=== PATIENT | male | born 1960 | race Caucasian/White ===

== ENCOUNTER 2022-04-15 08:24 | Outpatient (CLI) | payer OTHER, SELFPAY ==
[2022-04-15 12:45] LABS: Cholesterol* 260 mg/dL (90-199); Glucose* 89 mg/dL (60-115); Triglycerides* 107 mg/dL (40-149)
[2022-04-15 12:46] LABS: HDL Cholesterol* 59 mg/dL (>=40); LDL Cholesterol Calculated 180 mg/dL (<100)
== END 2022-04-15 08:25 | disposition home or self-care (01) ==
PROVIDERS: PCP Internal Medicine; Visit Provider Internal Medicine
DX: Z13.1 Encounter for screening for diabetes mellitus (principal); Z13.6 Encounter for screening for cardiovascular disorders
CPT/HCPCS: 80061; 82947

== ENCOUNTER 2023-09-06 13:11 | Outpatient (CLI) | payer OTHER, SELFPAY ==
--- OUTSIDE RECORDS SUMMARY | 2023-09-06 13:13 | XMS_ITS | Clinical Summary ---
Author Name Unknown Organization [facility] Address [address] [place] [address] Care Team Providers Care Bilingual Inside Sales Representative Name Role Phone Liza Sharpe APRN, TUB OPERATOR Primary Care Provider Source Comments You are receiving this document as you are listed as the primary care provider,follow-up provider, or the patient has been referred to you for consultation.This is in compliance with the Medicare and[facility] E[facility] Incentive Program,which states Providers who transition their patient to another setting of careor provider of care or refers their patient to another provider of care shouldprovide summary care record for each transition of care or referral. [facility] Allergies Active Allergy Reactions Criticality Noted Date Comments Sulfamethoxazole-Tri methoprim Other, see comments,Fever High 04/15/2015 PN: Elevated liver enzymes Medications Medication Sig Dispensed Refills Start Date End Date Status tamsulosin (FLOMAX) 0.4 MG CAPS capsule Take 1 Capsule by mouth daily. 90 Capsule 3 07/25/2018 Active aspirin 81 MG chewable tablet Chew and swallow 81 mg by mouth daily. Active Tadalafil (CIALIS) 5 MG tabletIndications: Urinary retention Take 1 Tablet by mouth daily. 30 Tablet 6 03/25/2020 Active Additional Information Patient not taking.Reported on 08/19/2020 Active Problems Problem Noted Date Diagnosed Date Benign prostatic hyperplasia 05/29/2020 Overview: Added automatically from request for surgery [id number] Immunizations Name Administration Dates Next Due Influenza IIV4 (Quadrivalent) 0.5mL (26632) 03/16 Moderna Monovalent 12+ 09/24/2020,08/27/2020 Family History Medical History Relation Name Comments Cancer Maternal Grandfather bladder cancer Diabetes Maternal Grandmother Relation Name Status Comments Father Alive Mother Alive Brother Alive Maternal Grandfather Maternal Grandmother Social History Tobacco Use Types Packs/Day Years Used Date Smoking Tobacco: Former Smokeless Tobacco: Never Alcohol Use Standard Drinks/Week Comments Yes 0 (1 standard drink = 0.6 oz pur e alcohol) Sex and Gender Information Value Date Recorded Sex Assigned at Not on file Gender Identity Not on file Sexual Orientation Not on file Last Filed Vital Signs Vital Sign Reading Time Taken Comments Blood Pressure 114/82 08/04/2020 9:00 AM CDT Pulse 69 08/04/2020 9:00 AM CDT Temperature 36.6 ??C (97.9 ??F) 08/04/2020 8:06 AM CD T Respiratory Rate 16 08/04/2020 9:00 AM CDT Oxygen Saturation 96% 08/04/2020 9:00 AM CDT Inhaled Oxygen Concentration - - Weight 98.2 kg (216 lb 6.4 oz) 07/28/2020 10:23 AM CDT Height 178.6 cm (5' 10.3) 07/28/2020 10:23 AM C DT Body Mass Index 30.79 07/28/2020 10:23 AM CDT Plan of Treatment Health Maintenance Due Date Last Done Comments Adult Preventive Visit 1978 Cholesterol 01/24/2004 01/23/1999 FIT Colon Cancer Screening 2004 PSA Screening Discussion 04/08/2021 020, 04/24/2015, 03/28/2015 Zoster/Shingles (2 of 2) 06/10/2022 04/15/2022 COVID-19 Vaccine (3 - 2022-2 4 season) 2023 09/24/2020, 08/27/2020 Influenza (#1) 2023 03/25/2020 DTaP/Tdap/Td (2 - Tdap) 06/18/2024 06/18/2014 Hep C Screening (Preventive Services) Completed 05/07/2015 HIV Screening (Preventive Services) Completed 01/30/2016 HepA Aged Out No longer eligi ble based on patient's age to complete this topic HepB Aged Out No longer eligi ble based on patient's age to complete this topic Hib Aged Out No longer eligi ble based on patient's age to complete this topic IPV (Polio) Aged Out No longer eligi ble based on patient's age to complete this topic MCV4 Aged Out No longer eligi ble based on patient's age to complete this topic Pneumococcal Aged Out No longer eligi ble based on patient's age to complete this topic Medical Devices Implanted Type Area Craniologist Device Identifier Shelf Expiration Date Model / Serial / Lot Kit Urolift - [id number] Implanted:Qty: 4 on 08/04/2020 by Bandar Garcia MD at [facility] DEVICE N/A: URE[employer]RA [place] 01/08/2022 [id number] / / [id number] Procedures Procedure Name Priority Date/Time Associated Diagnosis Comments PROSTATIC SPECIFIC ANTIGEN(SCREEN) Routine 04/08/2020 8:24 AM LANDSCAPE ARCHITECT Urinary retention HIV-1 P24 AND HIV-1/HIV-2 ANTIBODIES Routine 01/30/2016 10:19 AM CDT Screen for sexually transmitted diseases HEPATITIS C ANTIBODY, WITH REFLEX Routine 05/07/2015 2:18 PM LANDSCAPE ARCHITECT Elevated liver function tests CHOLESTEROL (TOTAL) Routine 01/23/1999 1 2:15 PM CDT from Last 3 Months or Most Recently Relevant to Health Maintenance Results * Prostatic Specific Antigen (04/08/2020 8:24 AM LANDSCAPE ARCHITECT) Prostatic Specific Antigen 2.5 0.0 - 4.0 ng/mL 04/08/2020 1:06 PM LANDSCAPE ARCHITECT [facility] Blood Venipuncture / Unknown 04/08/2020 8:24 AM LANDSCAPE ARCHITECT 04/08/2020 8:56 AM LANDSCAPE ARCHITECT Narrative [facility] - 04/08/2020 1:06 PM LANDSCAPE ARCHITECT The Mc PSA Chemiluminescent immunoassay is used. Results obtained with different test methods or kits cannot be used interchangeably. Bandar Garcia MD LAB_1 [facility] [address] [place], [place] [id number] [place] [address] * LAB HIV-1 p24 AND HIV-1/HIV-2 ANTIBODIES (01/30/2016 10:19 AM CDT) HIV-1 p24 Ag and HIV-1/HIV-2 Ab Nonreactive Nonreactive PN SOFT 01/30/2016 10:1 9 AM CDT 01/30/2016 1:33 PM CDT Narrative PN SOFT - 01/30/2016 2:47 PM [place] [address] CLIA number [id number] Judith Hall PA-C LAB_1 Performing Organization Address [facility] Co de Phone Number PN SOFT [address] [place] [address] * Hepatitis C Antibody, with Reflex (05/07/2015 2:18 PM LANDSCAPE ARCHITECT) Hepatitis C Antibody Nonreactive Non-React mitchell HP CONVERSION 05/07/2015 2:18 PM LANDSCAPE ARCHITECT 05/07/2015 7:14 PM LANDSCAPE ARCHITECT Narrative HP CONVERSION - 05/07/2015 8:51 PM LANDSCAPE ARCHITECT Performed at [facility], [address] [place] [address] CLIA number [id number] Liza Sharpe APRN, CNP LAB_1 Performing Organization Address [facility] Co de Phone Number HP CONVERSION * Cholesterol (Total) (01/23/1999 12:15 PM CDT) Cholesterol 189 125 - 199 mg/dL HP CONVERSION 01/23/1999 12:1 5 PM CDT Paulo Key MD LAB_1 Performing Organization Address City/[facility] Co de Phone Number HP CONVERSION from Last 3 Months or Most Recently Relevant to Health Maintenance Care Teams Bilingual Inside Sales Representative Relationship Specialty Start Date End Date Liza Sharpe APRN, TUB OPERATOR [address] [place] [address] PCP - General 04/09/15
== END 2023-09-06 13:12 | disposition home or self-care (01) ==
PROVIDERS: PCP Internal Medicine; Visit Provider Internal Medicine
DX: E78.2 Mixed hyperlipidemia (principal); Z12.5 Encounter for screening for malignant neoplasm of prostate
CPT/HCPCS: 80061; G0103

== ENCOUNTER 2024-08-16 15:09 | Outpatient (CLI) | payer BC, SELFPAY | END 2024-08-16 15:10 | disposition home or self-care (01) | PROVIDERS: PCP Internal Medicine; Visit Provider Internal Medicine | DX: E78.5 Hyperlipidemia, unspecified (principal); Z12.5 Encounter for screening for malignant neoplasm of prostate | CPT/HCPCS: 80061; G0103 ==

== ENCOUNTER 2024-11-29 15:00 | Outpatient (CLI) | payer BC, SELFPAY | END 2024-11-29 15:01 | disposition home or self-care (01) | PROVIDERS: PCP Internal Medicine; Referring Provider Internal Medicine; Visit Provider Internal Medicine | DX: E78.5 Hyperlipidemia, unspecified (principal) | CPT/HCPCS: 80061 ==